=== PATIENT | female | born 1985 | race African-American/Black ===

== ENCOUNTER 2016-06-18 11:24 | Emergency (ER) | payer OTHER ==
[~2016-06-18] VITALS: Ht 172.7 cm; Wt 81.7 kg
[~2016-06-18 11:24] MED LIST: ADDERALL 20 MG20 M1 PO; CIPROFLOXACIN500 M1 PO; COUMADIN PO; DEPAKOTE500 MG PO; HYDROXYZIN10 MG/5 ML PO; HYDROXYZINE HCL50 MG PO; IBUPROFEN 800800 MG PO; LAMICTAL XR100 MG PO; NOHOMEMEDICATIONS; NORFLEX100 MG PO; PEPCID40 MG PO; VITAMIN D250000 UNIT PO; [UNRECOGNIZED DRUG - OTHER] PO
[2016-06-18] MEDS ORDERED: ADDERALL 30 MG30 MG PO (11:45)
[2016-06-18] MEDS ORDERED: LATUDA20 MG PO (11:46)
[2016-06-18 11:59] LABS: URINE BILIRUBIN NEGATIVE (Negative); URINE BLOOD NEGATIVE (Negative); URINE COLOR YELLOW; URINE GLUCOSE-RANDOM* NEGATIVE (Negative); URINE KETONES NEGATIVE (Negative); URINE LEUKOCYTES-REFLEX NEGATIVE (Negative); URINE PROTEIN (DIPSTICK) NEGATIVE (Negative); URINE SPECIFIC GRAVITY <= 1.005 (1.003-1.035); URINE UROBILINOGEN 0.2 E.U./dl (0.2-1.0)
[2016-06-18 12:01] LABS: ABSOLUTE NEUTROPHILS 1.3 thou/uL (1.4-8.2); HEMATOCRIT 37.5 % (37.0-47.0); HEMOGLOBIN 12.5 gm/dL (12.0-15.0); LYMPHOCYTES 43.7 % (24.0-44.0); MCHC 33.4 g/dL (28.0-37.0); PLATELET COUNT 292 thou/uL (150-400); POLYS 39.3 % (36.0-66.0); RBC 4.32 mil/uL (4.20-5.00); RDW 13.8 % (10.5-14.5); WBC 3.2 thou/uL (4.0-11.0)
[2016-06-18 12:03] LABS: MANUAL DIFF NO
[2016-06-18 12:08] LABS: CALCIUM 8.6 mg/dL (8.5-10.1); CREATININE 0.7 mg/dL (0.6-1.3); POTASSIUM 3.8 mmol/L (3.5-5.1)
[2016-06-18] MEDS ORDERED: NAPROSYN500 MG PO (13:59)
[2016-06-18 14:10] VITALS: BP 1020/62
[2016-06-18] MEDS ORDERED: FLAGYL500 MG PO (14:25)
[2016-06-20 15:06] LABS: CHLAMYDIA TRACHOMATIS-PCR Positive (Negative); NEISSERIA GONORRHEA-PCR Negative (Negative)
== END 2016-06-18 14:15 | disposition home or self-care (01) ==
LOC: ER 11:24
PROVIDERS: Emergency Medicine
DX: N93.8 Other specified abnormal uterine and vaginal bleeding (principal); N76.0 Acute vaginitis; F31.9 Bipolar disorder, unspecified